=== PATIENT | female | born 1960 ===

== ENCOUNTER 2024-06-21 05:55 | Day surgery (SDC) | payer OTHER ==
[2024-06-15 11:08] VITALS: BP 140/75
[~2024-06-21] VITALS: Ht 162.6 cm; Wt 122.5 kg
[~2024-06-21 05:55] MED LIST: OMEPRAZOLE20 MG PO
[2024-06-21] MEDS ORDERED: HEMOSTATIC MATRIX 1 KIT KIT TOP SCH (11:30)
[2024-06-21] MEDS ORDERED: METRONIDAZOLE/SODIUM CHLORIDE 500 MG/100 ML PIGGYBACK IV SCH (11:30)
[2024-06-21] MEDS ORDERED: CEFTRIAXONE SODIUM 2,000 MG VIAL IV SCH (11:30)
[2024-06-21] MEDS ORDERED: POVIDONE-IODINE 118 ML BOTT TOP SCH (11:30)
[2024-06-21] MEDS ORDERED: LIDOCAINE HCL 1%/EPINEPHRINE 20ML VIAL IJ SCH (11:30)
[2024-06-21] MEDS ORDERED: DIBUCAINE 30 GM TUBE RECTAL SCH (11:30)
[2024-06-21] MEDS ORDERED: BUPIVACAINE HCL/PF 0.25% 30ML VIAL InF SCH (11:30)
[2024-06-21] MEDS ORDERED: TAMSULOSIN HCL 0.4 MG CAP PO ONE (12:00)
[2024-06-21] MEDS ORDERED: OXYCODONE HCL5 MG PO (12:07)
== END 2024-06-21 16:50 | disposition home or self-care (01) ==
LOC: CIR.AMB 05:55
PROVIDERS: ATTEND Surgery
DX: K64.2 Third degree hemorrhoids (principal); K64.4 Residual hemorrhoidal skin tags; K62.89 Other specified diseases of anus and rectum; K62.5 Hemorrhage of anus and rectum; K62.4 Stenosis of anus and rectum; J45.909 Unspecified asthma, uncomplicated; J32.9 Chronic sinusitis, unspecified